=== PATIENT | female | born 1990 | race Caucasian/White ===

== ENCOUNTER 2024-07-24 19:17 | Outpatient (CLI) | payer OTHER ==
[~2024-07-24] VITALS: Ht 160 cm; Wt 76.2 kg
[2024-07-24 18:32] VITALS: BP 113/72; O2SAT 99
[~2024-07-24 19:17] MED LIST: PRENATAL CAPLE1 EAC1 PO
[2024-07-24 20:55] VITALS: BP 119/67
[2024-07-24 21:22] VITALS: BP 119/67
== END 2024-07-24 21:22 | disposition left against medical advice (07) ==
LOC: OBS/DEL 19:17
PROVIDERS: ATTEND Obstetrics & Gynecology
DX: O26.892 Other specified pregnancy related conditions, second trimester (principal); Z3A.21 21 weeks gestation of pregnancy

== ENCOUNTER 2024-09-27 14:41 | Outpatient (CLI) | payer OTHER | END 2024-09-27 14:43 | disposition home or self-care (01) | LOC: SONOGRAMA 14:41 | PROVIDERS: ATTEND Obstetrics & Gynecology | DX: N64.0 Fissure and fistula of nipple (principal) ==

== ENCOUNTER 2024-11-19 16:46 | Outpatient (CLI) | payer OTHER ==
[~2024-11-19] VITALS: Ht 160 cm; Wt 87.1 kg
[2024-11-19 17:06] VITALS: BP 122/80
[2024-11-19] MEDS ORDERED: RINGERS SOLUTION,LACTATED 1,000 ML IV SCH (19:15)
[2024-11-19 19:48] LABS: HEMATOCRIT 30.4 % (36.0-45.00); HEMOGLOBIN 10.7 g/dL (12.0-15.00); MEAN CELL VOLUME 95.3 fL (80.00-100.00); MEAN CORPUSCULAR HEMOGLOBIN 33.5 pg (27.00-32.0); MEAN CORPUSCULAR HGB CONC 35.1 g/dl (32.0-36.0); PLATELET COUNT 177 K/uL (150-450); RED BLOOD COUNT 3.19 M/uL (4.00-6.00); RED CELL DISTRIBUTION WIDTH 13.6 % (11.5-14.5)
[2024-11-19 20:00] LABS: INR < 0.93; PARTIAL THROMBOPLASTIN TIME 25.3 SECONDS (22.0-34.0)
[2024-11-19 20:10] LABS: ALBUMIN 2.8 gm/dL (3.4-5.0); BILIRUBIN TOTAL 0.3 mg/dL (0.3-1.2); CALCIUM 8.9 mg/dL (8.5-10.1); CREATININE SERUM 0.43 mg/dL (0.55-1.02); GFR 170.16; GLOBULINA 2.8 G/DL (2.4-3.5); POTASSIUM 4.04 mEq/L (3.5-5.1); TOTAL PROTEIN 5.6 gm/dL (6.4-8.2)
[2024-11-19] MEDS ORDERED: PROBIOTIC250 MG (21:18)
[2024-11-19 23:21] VITALS: BP 117/70
[2024-11-20 02:55] VITALS: BP 114/70
[2024-11-20 06:06] VITALS: BP 107/71; O2SAT 98
== END 2024-11-20 12:55 | disposition home or self-care (01) ==
LOC: OBS/DEL 16:46 → NST 16:46 → OBS/DEL 18:29
PROVIDERS: ATTEND Obstetrics & Gynecology Gynecology
DX: O26.893 Other specified pregnancy related conditions, third trimester (principal); Z3A.38 38 weeks gestation of pregnancy

== ENCOUNTER 2024-11-21 14:00 | Inpatient (IN) | payer OTHER ==
[~2024-11-21] VITALS: Ht 160 cm; Wt 88.5 kg
[~2024-11-21 14:00] MED LIST changes: +PROBIOTIC250 MG
[2024-11-26 16:48] VITALS: BP 106/72
[2024-11-26] MEDS ORDERED: CEFAZOLIN SODIUM 1,000 MG VIAL ONE (18:06)
[2024-11-26] MEDS ORDERED: CEFAZOLIN SODIUM 1,000 MG VIAL IV SCH (18:15)
[2024-11-26] MEDS ORDERED: CITRIC ACID/SODIUM CITRATE 30 ML BLIST.PACK PO ONE (18:15)
[2024-11-26] MEDS ORDERED: RINGERS SOLUTION,LACTATED 1,000 ML IV SCH (18:15)
[2024-11-26] MEDS ORDERED: OXYTOCIN 10 UNITS/ML VIAL ONE ×2 (18:44→23:32)
[2024-11-26] MEDS ORDERED: ERYTHROMYCIN BASE OPHT 1GM EACH TUBE OP ONE (18:44)
[2024-11-26 18:45] LABS: HEMOGLOBIN 10.9 g/dL (12.0-15.00); MEAN CELL VOLUME 96.9 fL (80.00-100.00); MEAN CORPUSCULAR HEMOGLOBIN 32.9 pg (27.00-32.0); PLATELET COUNT 207 K/uL (150-450); RED CELL DISTRIBUTION WIDTH 13.3 % (11.5-14.5)
[2024-11-26] MEDS ORDERED: MORPHINE SULFATE 4 MG/ML CARTRIDGE IV SCH (18:45)
[2024-11-26] MEDS ORDERED: OXYTOCIN 1,000 ML IV ONE (19:00)
[2024-11-26] MEDS ORDERED: KETOROLAC TROMETHAMINE 30 MG VIAL IV SCH (19:00)
[2024-11-26 19:13] LABS: INR < 0.93; PARTIAL THROMBOPLASTIN TIME 25.2 SECONDS (22.0-34.0)
[2024-11-26 19:19] LABS: ALBUMIN 2.9 gm/dL (3.4-5.0); BILIRUBIN TOTAL 0.29 mg/dL (0.3-1.2); CALCIUM 8.9 mg/dL (8.5-10.1); CREATININE SERUM 0.42 mg/dL (0.55-1.02); GFR 174.85; GLOBULINA 3.1 G/DL (2.4-3.5); POTASSIUM 4.02 mEq/L (3.5-5.1)
[2024-11-26] MEDS ORDERED: KETOROLAC TROMETHAMINE 30 MG VIAL ONE (20:48)
[2024-11-26] MEDS ORDERED: MORPHINE SULFATE 4 MG/ML VIAL IV ONE (22:30)
[2024-11-27] MEDS ORDERED: MORPHINE SULFATE 4 MG/ML VIAL IV ONE (00:20)
[2024-11-27 01:13] VITALS: BP 141/81; O2SAT 99
[2024-11-27] MEDS ORDERED: OXYTOCIN 10 UNITS/ML VIAL ONE (03:26)
[2024-11-27] MEDS ORDERED: ACETAMINOPHEN 500 MG GEL..CAP PO SCH (06:00)
[2024-11-27 07:07] LABS: HEMATOCRIT 28.6 % (36.0-45.00); HEMOGLOBIN 9.8 g/dL (12.0-15.00); MEAN CELL VOLUME 96.9 fL (80.00-100.00); MEAN CORPUSCULAR HEMOGLOBIN 33.1 pg (27.00-32.0); MEAN CORPUSCULAR HGB CONC 34.2 g/dl (32.0-36.0); PLATELET COUNT 157 K/uL (150-450); RED BLOOD COUNT 2.95 M/uL (4.00-6.00)
[2024-11-27 08:24] VITALS: BP 110/71
[2024-11-27] MEDS ORDERED: SIMETHICONE 125 MG CAPSULE PO SCH (09:00)
[2024-11-27] MEDS ORDERED: GABAPENTIN 300 MG CAPSULE PO SCH (09:00)
[2024-11-27] MEDS ORDERED: PNV,CALCIUM 72/IRON/FOLIC ACID 1 TAB TABLET PO SCH (09:00)
[2024-11-27] MEDS ORDERED: DOCUSATE SODIUM 100MG CAP PO SCH (09:00)
[2024-11-27] MEDS ORDERED: IBUprofen 600 MG TABLET PO SCH (12:00)
[2024-11-27 16:09] VITALS: BP 103/70; O2SAT 98
[2024-11-28] VITALS: BP 112/74
[2024-11-28 08:48] VITALS: BP 111/76; O2SAT 99
[2024-11-29] VITALS: BP 120/72; O2SAT 99
[2024-11-29 08:49] VITALS: BP 126/72
== END 2024-11-29 12:20 | disposition home or self-care (01) | DRG 788 ==
LOC: LDR 11-26 16:38 → O/R 11-26 19:04 → OB/GYN 11-26 20:37
PROVIDERS: Obstetrics & Gynecology Gynecology; ADMIT Obstetrics & Gynecology; ATTEND Obstetrics & Gynecology
PROC: 4A1HXCZ Monitoring of Products of Conception, Cardiac Rate, External Approach (ICD-10-PCS; 2024-11-26)
PROC: 10D00Z1 Extraction of Products of Conception, Low, Open Approach (ICD-10-PCS; principal; 2024-11-26 20:30)
DX: O36.8130 Decreased fetal movements, third trimester, not applicable or unspecified (principal); Z3A.39 39 weeks gestation of pregnancy; Z37.0 Single live birth; Z20.822 Contact with and (suspected) exposure to COVID-19

== ENCOUNTER 2024-11-23 12:39 | Outpatient (CLI) | payer OTHER | END 2024-11-23 13:30 | disposition home or self-care (01) | LOC: NST 12:39 | PROVIDERS: ATTEND Obstetrics & Gynecology Gynecology | DX: Z34.83 Encounter for supervision of other normal pregnancy, third trimester (principal) ==

== ENCOUNTER 2025-05-14 15:35 | Emergency (ER) | payer OTHER ==
[~2025-05-14] VITALS: Ht 170.2 cm; Wt 68.0 kg
== END 2025-05-14 19:49 | disposition home or self-care (01) ==
LOC: ER 15:35
DX: L02.31 Cutaneous abscess of buttock (principal)

== ENCOUNTER 2025-05-17 11:31 | Emergency (ER) | payer OTHER ==
[~2025-05-17] VITALS: Ht 160 cm; Wt 74.4 kg
[2025-05-17] MEDS ORDERED: 0.9 % SODIUM CHLORIDE 1,000 ML IV STA (11:56)
[2025-05-17 12:51] LABS: BASO % 0.3 % (0.1-1.2); EOS # 0.01 (0.04-0.54); EOS % 0.3 % (0.7-7.0); LYMPH # 0.49 (1.18-3.74); LYMPH % 13.5 % (19.3-53.1); MEAN PLATELET VOLUME 9.10 fl (9.4-12.4); MONO # 0.57 (0.24-0.82); NEUT # 2.53 (1.56-6.13); NEUT % 69.6 % (34.0-71.1); RED CELL DISTRIBUTION WIDTH 12.0 % (11.6-14.4)
[2025-05-17 12:53] LABS: MONO % 15.7 % (4.7-12.5)
[2025-05-17 13:06] LABS: URINE APPEARANCE Clear; URINE BILIRRUBIN Negative (NEGATIVE); URINE BLOOD Small; URINE COLOR Yellow; URINE GLUCOSE Negative (NEGATIVE); URINE KETONE Trace (NEGATIVE); URINE LEUKOCYTE Negative; URINE NITRATE Negative; URINE PROTEIN Negative (NEGATIVE); URINE UROBILINOGEN 0.2 E.U./dl
[2025-05-17 13:07] LABS: URINE BACTERIA 43.1 uL (0.0-1933); URINE EPITHELIAL CELLS 43.6 uL (0.0-38.8); URINE RBC 4.3 uL (0.0-20.8); URINE WBC 8.9 uL (0.0-23.2)
[2025-05-17 13:11] LABS: INR 1.13
[2025-05-17 13:16] LABS: ALT/SGPT 20.0 U/L (12-78); AST/SGOT 16.0 U/L (15-37); BILIRUBIN TOTAL 0.33 mg/dL (0.3-1.2); BUN CREA RATIO 17.0 (7.0-25.0); CREATININE SERUM 0.63 mg/dL (0.55-1.02); GFR 108.83; GLOBULINA 3.2 G/DL (2.4-3.5); GLUCOSE FASTING 106.0 mg/dL (65-100); OSMOLALITY SERUM 281.0 MOSM/KG (275-295)
[2025-05-17 13:47] LABS: URINE CAST 0.00 uL (0.0-1.40)
[2025-05-17 14:46] LABS: COVID-19 AG NEGATIVE (NEGATIVE)
== END 2025-05-17 15:57 | disposition home or self-care (01) ==
LOC: ER 11:31
PROVIDERS: General Practice
DX: R50.9 Fever, unspecified (principal); L02.31 Cutaneous abscess of buttock; J10.1 Influenza due to other identified influenza virus with other respiratory manifestations; L03.317 Cellulitis of buttock; Z20.822 Contact with and (suspected) exposure to COVID-19